=== PATIENT | male | born 1950 | race Two or more races ===

== ENCOUNTER 2020-04-02 11:26 | Inpatient (IN) | payer MEDICARE, OTHER ==
[~2020-04-02] VITALS: Ht 165.1 cm; Wt 73.5 kg
--- OUTSIDE RECORDS SUMMARY | ~2020-04-02 | XMS | Encounter Summary ---
Demographics + + + | Address | [address] | | | [place] [address] | + + + | Home Phone | | + + + | Preferred Language | Unknown | + + + | Marital Status | Unknown | + + + | Yazdanism Affiliation | 1041 | + + + | Race | Unknown | + + + | Ethnic Group | Unknown | + + + Author + + + | Author | [facility] | | | and [place] | + + + | Organization | [facility] | | | and [place] | + + + | Address | Unknown | + + + | Phone | Unavailable | + + + Support + + +---------+ + | Name | Relationship | Address | Phone | + + +---------+ + | Pop Cornelius | ECON | Unknown | | + + +---------+ + | Constanza Cornelius | ECON | Unknown | | + + +---------+ + Care Team Providers + +------+ + | Care Oracle Brm Developer Name | Role | Phone | + +------+ + PCP | Unavailable | + +------+ + Encounter Details +--------+ + + + + | Date | Type | Department | Care Team | Description | +--------+ + + + + | 11/21/ | [facility] | [facility] | | | | 2010 | Encounter | MED CTR GENERIC OP | | | | | | CONV DEPT [address] | | | | | | [place], | | | | | | [place] [address] | | | | | | [phone] | | | +--------+ + + + + Social History + +-------+ +--------+------+ | Tobacco Use | Types | Packs/Day | Years | Date | | | | | Used | | + +-------+ +--------+------+ | Never Assessed | | | | | + +-------+ +--------+------+ + + + | Sex Assigned at | Date Recorded | | | | + + + | Not on file | | + + + + + + + | Job Start Date | Occupation | Industry | + + + + | Not on file | Not on file | Not on file | + + + + + + + + | Travel History | Travel Start | Travel End | + + + + + + | No recent travel history available. | + + documented as of this encounter Plan of Treatment Not on filedocumented as of this encounter Visit Diagnoses Not on filedocumented in this encounter"
--- OUTSIDE RECORDS SUMMARY | ~2020-04-02 | XMS | Encounter Summary ---
Demographics + + + | Address | [address] | | | [place] [address] | + + + | Home Phone | | + + + | Preferred Language | Unknown | + + + | Marital Status | Unknown | + + + | Adventist Affiliation | 1041 | + + + | Race | Unknown | + + + | Ethnic Group | Unknown | + + + Author + + + | Author | [facility] | | | and [place] | + + + | Organization | [facility] | | | and [...] Team Providers + +------+ + | Care Temporary Data Entry Clerk Name | Role | Phone | + +------+ + PCP | Unavailable | + +------+ + Encounter Details +--------+ + + + + | Date | Type | Department | Care Team | Description | +--------+ + + + + | 07/21/ | Abstract | [facility] | [facility] | | | 2011 | | Conversion Location | [address] | | | | | [address] | | | | | | [place], [place] | | | | | | [address] | | | | | | [phone] | | | +--------+ + + + [...] + + documented as of this encounter Last Filed Vital Signs + + + [...] | | + + + + + documented in this encounter Plan of Treatment Not on filedocumented as of this encounter Procedures + +--------+ + + + | Procedure Name | Priori | Date/Time | Associated Diagnosis | Comments | | | ty | | | | + +--------+ + + + | ENDOSCOPY, COLON, | Routin | 11/21/2010 | | Results for this | | DIAGNOSTIC | e | 12:00 AM | | procedure are in the | | | | PST | | results section. | + +--------+ + + + documented in this encounter Results ENDOSCOPY, COLON, DIAGNOSTIC (11/21/2010 12:00 AM PST) + + | Specimen | + + | | + + + + + | Narrative | Performed At | + + + | | | + + + documented in this encounter Visit Diagnoses Not on filedocumented in this encounter
--- OUTSIDE RECORDS SUMMARY | ~2020-04-02 | XMS | Encounter Summary ---
Demographics + + + | Address | [address] | | | [place] [address] | + + + | Home Phone | | + + + | Preferred Language | Unknown | + + + | Marital Status | Unknown | + + + | Hinduism Affiliation | 1041 | + + + | Race | Unknown | + + + | Ethnic Group | Unknown | + + + Author + + + | Author | [facility] | | | and [place] | + + + | Organization | [facility] | | [...] Team Providers + +------+ + | Care Radio Board Operator Announcer Name | Role | Phone | + +------+ + PCP | Unavailable | + +------+ + Encounter Details +--------+ + + + + | Date | Type | Department | Care Team | Description | +--------+ + + + + | 11/21/ | [facility] | [facility] | | | | 2010 | Encounter | MED CTR GENERIC OP | | | | | | CONV DEPT [address] | | | | | | [place], | | | | | | [place] [address] | | | | | | [phone] | | | +--------+ + + + [...]
--- OUTSIDE RECORDS SUMMARY | ~2020-04-02 | XMS | Encounter Summary ---
Demographics + + + | Address | [address] | | | [place] [address] | + + + | Home Phone | | + + + | Preferred Language | Unknown | + + + | Marital Status | Unknown | + + + | Christianity Affiliation | 1041 | + + + | Race | Unknown | + + + | Ethnic Group | Unknown | + + + Author + + + | Author | [facility] | | | and [place] | + + + | Organization | [facility] | | | [...] Team Providers + +------+ + | Care Chain Saw Mechanic Name | Role | Phone | + +------+ + PCP | Unavailable | + +------+ + Encounter Details +--------+ + + + + | Date | Type | Department | Care Team | Description | +--------+ + + + + | 04/03/ | Hospital | [place] [facility] | | | 2009 | Encounter | [facility] EM[facility]GENCY | [address] | | | | | [address] | [address] | | | | | [address] [place], [place] | [place] [address] | | | | | [address] | [phone] | | | | | [phone] | | | +--------+ + + + [...]
--- OUTSIDE RECORDS SUMMARY | ~2020-04-02 | XMS | Clinical Summary ---
Demographics + + + | Address | [address] | | | [place] [address] | + + + | Home Phone | | + + + | Preferred Language | Unknown | + + + | Marital Status | Unknown | + + + | Oriental Orthodox Affiliation | 1041 | + + + | Race | Unknown | + + + | Ethnic Group | Unknown | + + + Author + + + | Author | [facility] | | | and [place] | + + + | Organization | [facility] | | | and [...] Team Providers + +------+ + | Care Personal Banking Assistant Name | Role | Phone | + [...] recent travel history available. | + + Last Filed Vital Signs + [...] + + Plan of Treatment + + + + + | Health Maintenance | Due Date | Last Done | Comments | + + + + + | Vaccine: | | | | | Dtap/Tdap/Td (1 - | 0 | | | | Tdap) | | | | + + + + + | Vaccine: Zoster (1 | | | | | of 2) | 9 | | | + + + + + | Vaccine: | | | | | Pneumococcal 65+ (1 | 4 | | | | of 2 - PCV13) | | | | + + + + + | Vaccine: Influenza | | | | | (Season Ended) | 0 | | | + + + + + Results Not on filefrom Last 3 Months
--- OUTSIDE RECORDS SUMMARY | ~2020-04-02 | XMS | Clinical Summary ---
Demographics + + + | Address | [address] | | | [place] [address] | + + + | Home Phone | | + + + | Preferred Language | Unknown | + + + | Marital Status | Unknown | + + + | Spiritism Affiliation | 1041 | + + + | Race | Unknown | + + + | Ethnic Group | Unknown | + + + Author + + + | Author | [facility] | | | and [place] | + + + | Organization | [facility] | | | [...] Team Providers + +------+ + | Care Geographic Area Intelligence Officer Name | Role | Phone | + [...]
--- OUTSIDE RECORDS SUMMARY | ~2020-04-02 | XMS | Encounter Summary ---
Demographics + + + | Address | [address] | | | [place] [address] | + + + | Home Phone | | + + + | Preferred Language | Unknown | + + + | Marital Status | Unknown | + + + | Confucianist Affiliation | 1041 | + + + | Race | Unknown | + + + | Ethnic Group | Unknown | + + + Author + + + | Author | [facility] | | | and [place] | + + + | Organization | [facility] | | | and [...] Team Providers + +------+ + | Care Carbonation Equipment Operator Name | Role | Phone | + [...] | [address] [place], [place] | [place] [address] | | | | | [address] | [phone] | | | | | [phone] | | | +--------+ + + + [...]
--- OUTSIDE RECORDS SUMMARY | ~2020-04-02 | XMS | Encounter Summary ---
Demographics + + + | Address | [address] | | | [place] [address] | + + + | Home Phone | | + + + | Preferred Language | Unknown | + + + | Marital Status | Unknown | + + + | Zoroastrian Affiliation | 1041 | + + + | Race | Unknown | + + + | Ethnic Group | Unknown | + + + Author + + + | Author | [facility] | | | and [place] | + + + | Organization | [facility] | | [...] Team Providers + +------+ + | Care Account Liaison Name | Role | Phone | + [...] | | | | | [address] | | | | | | [place], [place] | | | | | | [address] | | | | | | [phone] | | | +--------+ + + + [...]
[~2020-04-02 11:26] MED LIST: ALEVE220 MG PO; ALLOPURINOL100 MG PO; ATACAND32 MG PO; EPIPEN1 EA INJ; HYDROMORPHONE HC2 MG PO; IRON325 M1 PO; MECLIZINE HCL25 MG PO; MULTIVITAMINS1 EAC7 PO; NORCO 7.5-3251 EACH PO; OXYCODONE HCL20 MG PO; OXYCODONE HCL5 MG PO; OXYCONTIN30 MG PO; RIFADIN300 MG PO; ROCEPHIN1 GM IV; TYLENOL325 MG PO; VITAMIN C500 M1 PO; XARELTO10 MG PO; ZETIA10 MG PO; ZYLOPRIM300 MG PO
[2020-04-04] MEDS ORDERED: IRBESARTAN75 MG PO (11:29)
--- NOTE | 2020-04-15 11:46 | NUR ---
04/15/20 1146 Jenna Parish 1102 PT ARRIVED IN PACU AWAKE AND MOVING AROUND IN BED. BP LOW. ANESTHESIA AWARE. 1111 ANESTHESIA GAVE VASOPRESSIN FOR LOW BP. 1115 BP 130/62. XRAY AT BEDSIDE. 1120 CRYO CUFF PLACED ON R KNEE. 1125 PT INCONTINENT OF LG AMOUNT OF URINE. CLEANED PT UP AND CHANGED GOWN/LINEN. 1145 PT SNORING. REU.
--- NOTE | 2020-04-15 12:00 | NUR ---
PT ARRIVED TO THE FLOOR FROM PACU. PT AWAKE BUT BECAME INCONTINET OF URINE UPON ARRIVAL OF URINE. PT WAS NOT AWARE THAT HE WAS URINATING, PT RECEIVED A SPINAL IN SURGERY. PT HAS NO COMPLAINTS OF PAIN. PT GIVEN THE CALL LIGHT AND EDUCATED HOW TO USE IT. PT GIVEN HIS PERSONAL ITEMS INCLUDIN: GLASSES AND PERSONEL CELL PHONE.
--- NOTE | 2020-04-15 12:35 | NUR ---
this rn in pts room. bladder scanner showed 332ml of urine in pts bladder. in pts room to assess pt. pt alert and oriented but falls asleep easily. notified at this time of pts bp. pt states that he did take his home bp meds prior to surgery today. pt also O2 sat at 88-91% on room air. this rn placed pt on 1L NC and pt O2 sat at 96-98% at this time
--- NOTE | 2020-04-15 13:12 | NUR ---
this rn in room to get 2nd post opp viatals
--- NOTE | 2020-04-15 15:20 | NUR ---
PT ALERT/ORIETNED ORDERED LATE LUNCH AT THIS TIME. PT HAS NOT COMPLAINTS OR REQUESTS AT THIS TIME. HAS BEEN SLEEPING INTERMITTEN, 95% OXYGEN SATURATION ON ROOM AIR AT THIS TIME
--- NOTE | 2020-04-15 16:17 | NUR ---
PATIENT WORKING WITH PHYSICAL THERAPY. CM WILL SEE TOMORROW.
--- NOTE | 2020-04-15 16:54 | NUR ---
IS AWARE OF PTS BP TODAY.
--- NOTE | 2020-04-15 17:14 | NUR ---
BLADDER SCANNED PT. PT HAS 273ML IN BLADDER. PT HAS SOME INCONTINENCE IN BRIEF PT STATES THAT HE STILL CANNOT FEEL THE URGE TO PEE. PT IS DUE TO VOID
--- NOTE | 2020-04-15 18:01 | NUR ---
PATIENT IN BED WATCHING TV. B\P JOAN, RN NOTIFIED AND IS COMING TO DO MANUAL B\P. CRYO FILLED. CALL LIGHT IN REACH. NO FURTHER NEEDS AT THIS TIME.
--- NOTE | 2020-04-15 19:05 | NUR ---
NOTIFIED ABOUT PTS SOFT BP'S TODAY. GAVE A VERBAL ORDER FOR LABS IN THE AM
--- NOTE | 2020-04-15 19:20 | NUR ---
BEDSIDE REPORT RECEIVED FROM OFFGOING RNMARTIR. PT RESTING IN BED WITH EYES CLOSED. DOES NOT WAKE WHILE TRAVEL COTA AND OFFGOING RN IN ROOM. CALL LIGHT IN REACH.
--- NOTE | 2020-04-15 20:25 | NUR ---
PT RESTING IN BED WITH EYES CLOSED.R ESPIRATIONS EVEN AND UNLABORED. PT WAKES EASILY. DENIES PAIN, NAUSEA, OR SOB. PT ASSESSMENT COMPLETE. PT REPORTS PAIN UPON ABDOMINAL PALPATION. SLIGHT DISTENSION NOTED. PT HAS URINAL IN PLACE WITH 50 ML PRESENT WELL X 1 INCONTINENCE TO ATTEND. PT BLADDER SCANNED, 800 ML PRESENT ON BLADDER SCAN. CARRION CATH INSERTED PER ORDER, 16 F. PT TOLERATED WELL. IMMEDIATE RETURN OF 850 ML OF ORANGE URINE. PT STATES IMMEDIATE RELIEF OF ABD PAIN AND PRESSURE. PT REPORTS NUMBNESS AND TINGLING TO R FOOT AND ANKLE. CAN FEEL KNEE. ABLE TO WIGGLE R TOES, ALTHOUGH CANNOT FEEL HIMSELF DOING SO. LLE WNL. YARI DRESSING D/I, WITH [id number] SHADOWING PRESENT. GREEN OK FLASHING, ON Q PUMP@ 2ML. TEDS, FOOT PUMPS, AND CRYO IN PLACE. PT VISITING WITH AIR DEFENSE CONTROL OFFICER WHOM HE KNOWS PERSONALLY. SCHEDULED MEDS ADMINISTERED. PT DENIES FURTHER NEEDS. CALL LIGHT IN REACH.
--- NOTE | 2020-04-15 20:58 | NUR ---
MD NOTIFIED REGARDING RECURRING LOW BLOOD PRESSURES, SPECIFICALLY 76/45 WITH MAP OF 57. WELL NEW CARRION PLACEMENT. PER MD, "JUST LIKE THE LAST TWO TIMES YOU GUYS HAVE CALLED, I DON'T WANT TO DO ANYTHING DIFFERENT". NO NEW ORDERS RECEIVED.
--- NOTE | 2020-04-15 23:20 | NUR ---
DIRECTOR OF NURSES REGISTRY TO ROOM FOR SCHEDULED MED ADMINISTRATION, PT RESTING IN BED WITH EYES CLOSED. WAKES EASILY TO VOICE AND TOUCH. PT REPORTS THAT PAIN IS WELL CONTROLLED. BP RETAKEN. PT DENIES FURTHER NEEDS AT THIS TIME. CALL LIGHT IN REACH.
--- NOTE | 2020-04-16 02:36 | NUR ---
PT ASSESSMENT COMPLETE. PT RESTING IN BED AWAKE WITH LIGHTS ON. PT DENIES PAIN, NAUSEA, OR SOB. PT DENIES FURTHER ABD TENDERNESS, NO DISTENSION NOTED. YARI DRESSING UNCHANGED FROM PREVIOUS, D/I. GREEN, "OK" FLASHING. ON Q @ 2 ML. PT CONTINUES TO REPORT NUMBNESS TO R LEG. CMS INTACT TO LLE. CRYO, TEDS, SCDS IN PLACE. CARRION DRAINING ORANGE URINE. BP CONTINUES TO BE LOW. ICE WATER REFILLED. PT DENIES FURTHER NEEDS. CALL LIGHT IN REACH.
--- NOTE | 2020-04-16 02:57 | NUR ---
HOSPITALIST NOTIFIED OF CONTINUED LOW BP. NO NEW ORDERS RECEIVED.
--- NOTE | 2020-04-16 05:23 | NUR ---
PT SLEPT WELL THIS SHIFT. PAIN IS WELL CONTROLLED WITH SCHEDULED MEDS. SPINAL NOT YET RESOLVED. YARI DRESSING WITH 1 CMX1CM RED SHADOWING PRESENT. DRY/INTACT, ASHELY WRAP, YARI BOX HAS GREEN OK LIGHT FLASHING. ON Q PUMP AT 2 ML. TEDS, FOOT PUMPS, CRYO, HEEL PROTECTORS. CARRION PLACED FOR BLADDER SCAN ~ 800 ML THIS SHIFT, REMOVED @ ~ 0600. UO QS, URINE ORANGE IN COLOR. IV SL. 2 PA WITH FWW. BP HAS BEEN LOW, PRIMARY AND CONSULTING MDS NOTIFIED.
--- NOTE | 2020-04-16 06:47 | NUR ---
WRTIER TO ROOM FOR MED ADMINISTRATION. PT AWAKE WATCHING TV. STATES THAT PAIN IS WELL CONTROLLED. PT REPORTS HE FEELS READY TO GET UP AND MOVING. CARRION CATH REMOVED. PT TOLERATED WELL. DENIES FURTHER NEEDS AT THIS TIME. CALL LIGHT WITHIN REACH.
--- NOTE | 2020-04-16 07:15 | NUR ---
PT SITTING UP IN BED ALERT AND ORIENTED, CARRION CATHETER OUT THIS AM, HE REPORTS HE USUALLY HAS A CUP OF COFFEE IN THE AM, WILL PROVIDE. NO OTHER CONCERNS AT THIS TIME, BEDSIDE REPORT.
--- NOTE | 2020-04-16 08:14 | OR ---
[facility] [address], [place] [address] Signed DATE OF OPERATION: SURGEON: Argenis Mejia MD PREOPERATIVE DIAGNOSIS: Arthrofibrosis, right total knee. POSTOPERATIVE DIAGNOSIS: Arthrofibrosis, right total knee. PROCEDURE PERFORMED: Revision of both components, right total knee. SHEAR OPERATOR AUTOMATIC: DIVINE Dumont ANESTHESIA: Spinal. TOURNIQUET TIME: 122 minutes, 15 minutes rest and 20 minutes after that. BLOOD LOSS: 300 mL. IMPLANTS: Luis TS knee size #4 with correction 150 mm stems both sides, two posterior augments on the femur of 5 mm and 16 mm poly. BRIEF HISTORY: Ela is a 69-year-old gentleman, who initially had a knee replacement about seven years ago. He had an early postoperative infection and was ultimately washed out poly exchange and IV antibiotics. He healed uneventfully, however, he did not pursue his physical therapy in order to return to work. He pretty much disappeared until the last year, so when he returned he had a significant flexion contracture about 25 degrees with total flexion of only about 50 degrees. Risks and benefits of operative revision were discussed with him. He elected to proceed. DESCRIPTION OF PROCEDURE: Once consent was obtained, he was taken to the operating room. After adequate anesthesia, he was placed on operating table. All downside pressure points well padded. Electronically Signed By: ARGENIS MEJIA MD 04/16/20 0814 PATIENT NAME: ELA VELARDE OPERATIVE REPORT DATE OF : 48 REPORT #: [id number] PHYSICIAN: ARGENIS MEJIA MD PCP: MAZIN TELLO MD REPORT IS CONFIDENTIAL AND NOT TO BE RELEASED WITHOUT AUTHORIZATION [facility] [address], [place] [address] Signed A well-padded proximal thigh tourniquet was placed. The leg was then prepped and draped in a standard sterile fashion. Exsanguinated using Esmarch bandage and tourniquet inflated to 250 mmHg. Prior incision was marked out and extended an inch each direction and carried through the skin and subcutaneous tissue. He had marked fibrosis between the skin and the subcutaneous tissue, and skin flaps were developed medially and laterally. The median parapatellar arthrotomy was performed. The proximal extension was taken to the proximal end of the tendon and the quadriceps snip was performed. There was extensive intra-articular fibrosis of the capsule to the underlying soft tissue, this was removed in the form of partial capsulectomy and extensive releases laterally. The patella was pretty much scarred in and the scar tissue was removed. The patellar tendon was protected throughout. The MCL was then elevated as a sleeve around posteromedially as far as I can get it. The polyethylene was then removed and the posterior aspect of the knee was released. There was some soft in the middle of the knee under the post, and we did send that off for Gram stain and culture and Gram stain showed minimal red blood cells, no white blood cells or organisms. Extensive posterior release performed off both the femur and tibia. This was done slowly with meticulous dissection of the layers. The capsule was released off the posterior femur and also the posterior proximal tibia. The popliteus was released. The soft tissue around the prostheses was removed to allow visualization of the edge of the prostheses. Then, using a combination of flexible hard osteotomes and microsagittal saw, we were able to loosen the femur by cutting through the cement mantle both medially and laterally. It came out quite well with no significant bone loss. Attention was then turned to the proximal tibia and the same thing was done there. The tibial component was patiently loosened by sawing and cutting with the osteotome until it was easy to remove. No significant bone loss was noted. The tibia was then cut first. The tibial shaft was then reamed up to 13 for 12 post. The reamer was left in position and the intramedullary cutting guide was positioned and 3 mm were taken off the tibia. The remaining cement mantle was removed. The attention was then turned to the distal femur. The distal femoral canal was then entered and reamed up to a 16 for 15 stem. The 16 reamer was left in position. The distal femoral cutting block was then positioned and a 1-2 mm cut was then taken off the distal femur and the four-in-one cutting block was then pinned on the distal femur and aligned with epicondylar axis. The anterior, posterior, and chamfer cuts were made. No posterior cuts were performed because of bone loss. We then cut him in the 5 mm posterior augment position. Once this was completed, the box cutting guide was placed in the box cut was made. The cutting blocks were then removed and all bone fragments removed. We then placed the femoral and tibial trials with initially a 13, then a 16 mm poly, and with the 16 he had range of motion zero to about 125 degrees of flexion. He was stable throughout and could not jump the post. By this time, the tourniquet reached to 120 minutes and the tourniquet was released, all bleeders were cauterized and the knee was packed for 15 minutes. We then re-exsanguinated and removed the packing. We removed the trials finish the tibia with a keel punch and the pulse lavaged all bone. We then used the Aquamantys on the posterior Electronically Signed By: ARGENIS MEJIA MD 04/16/20 0814 PATIENT NAME: ELA VELARDE OPERATIVE REPORT DATE OF : 48 REPORT #: [id number] PHYSICIAN: ARGENIS MEJIA MD PCP: MAZIN TELLO MD REPORT IS CONFIDENTIAL AND NOT TO BE RELEASED WITHOUT AUTHORIZATION [facility] [address], [place] [address] Signed and medial aspects of the capsule to delay any bleeders. Cement was placed on the femoral and tibial components as well as the tibial bone and the tibia was impacted in position, all excess cement was removed. The femur was then impacted into position and the polyethylene was snapped into position. Again, 60 mm used. Excellent range of motion with good stability in flexion, mid flexion and extension. The patella tracked well, although we did do a little bit of lateral release. The cement was allowed to harden. The knee was flexed and the remaining cement was removed using osteotomes. We then placed the final polyethylene with its post and reduced the knee. The knee again was quite stable. The wound was copiously irrigated with 4 L of antibiotic solution and On-Q pain pump was placed in the adductor canal from the suprapatellar pouch from a percutaneous position. The arthrotomy was then closed using a combination of #1 Vicryl and #2 StrataFix subcutaneous tissue was closed with #1 Stratafix, and the skin with doron. The wound was dressed with YARI wound VAC dressing, ABDs and Kalen wrap. He was awakened and taken to the recovery room in satisfactory condition. All sponge, needle, and instrument counts were correct. Argenis Mejia MD BA/MODL /[id number] Copies: ~ Electronically Signed By: ARGENIS MEJIA MD 04/16/20 0814 PATIENT NAME: ELA VELARDE OPERATIVE REPORT DATE OF : 48 REPORT #: [id number] PHYSICIAN: ARGENIS MEJIA MD PCP: MAZIN TELLO MD REPORT IS CONFIDENTIAL AND NOT TO BE RELEASED WITHOUT AUTHORIZATION
--- NOTE | 2020-04-16 08:15 | NUR ---
PATIENT SITTING UP IN CHAIR. WHITE BOARD UPDATED. CALL LIGHT WITHIN REACH. NO OTHER NEEDS AT THIS TIME
--- NOTE | 2020-04-16 09:21 | NUR ---
PATIENT SITTING UP IN CHAIR. VITAL SIGNS AND I&O DONE. CALL LIGHT WITHIN REACH. NO OTHER NEEDS AT THIS TIME
--- NOTE | 2020-04-16 09:30 | NUR ---
PT UP TO RECLINER TO EAT BREAKFAST, AMBULATED WELL TO RECLINER WITH SBA AND FWW, INTO ASSESS PT AND DISCUSS PLAN OF CARE. POSSIBLE SWINGBED FOR THERAPY. AM MED PASS COMPLETE. PT REPORTS NO PAIN AND IS LOOKING FORWARD TO PHYSICAL THERAPY.
--- NOTE | 2020-04-16 10:46 | NUR ---
PT RESTING IN THE RECLINER. HE HAS NOT YET VOIDED, TALKED WITH ANDREINA Mcnair ABOUT WHEN SHE IS AVAILABLE TO WORK WITH PATIENT. SHE SAID SHE IS AVAILABLE IN 5 MINUTES. PT NOTIFIED WE WILL TRY TO GET UP AND VOID IN THE BATHROOM.
--- NOTE | 2020-04-16 11:00 | NUR ---
Spoke with Ravindra. He states he continues to not have feeling in his feet. Discussed Transitional Care with patient as Dr. Mejia states he would like TC for this pt. for PT rehab. I will need to clarify with Dr. Mejia if he will follow or if he would like the hospitalist to follow on TC. Ravindra states understanding of TC and is in agreement for further rehab. He is wondering if his could rehab here, as she had a foot amputation last Wednesday. He would like to share a room, informed I don't think they could share a room as our rooms a singles. I let him know, [facility] needs to send us a chart, if she would like to rehab here.
--- NOTE | 2020-04-16 13:30 | NUR ---
PER PHYSICAL THERAPY INSTRUCTION, CPM MACHINE REMOVED AFTER 2 HOURS OF USE. PT REPORTS NO PAIN. PT VOIDING SUFFICIENT QUANTITY URINE IN BEDSIDE URINAL.
--- NOTE | 2020-04-16 14:00 | NUR ---
PT RESTING IN BED, REQUESTED TO BE LEFT TO TAKE A NAP AND NOT BE DISTURBED FOR AWHILE.
--- NOTE | 2020-04-16 14:05 | NUR ---
PATIENT RESTING IN BED. VITAL SIGNS AND I&O DONE. CALL LIGHT WITHIN REACH. CRYO MACHINE FILLED. CALL LIGHT WITHIN REACH. NO OTHER NEEDS AT THIS TIME
--- NOTE | 2020-04-16 15:30 | NUR ---
PT UP WITH PHYSICAL THARAPY, AMBULATED IN HALLS WITH ANDREINA, TOLERATED WELL, REPORTS NO PAIN. YARI DRESSING TO RIGHT KNEE INTACT, SCANT DRAINAGE NO NEW DRAINAGE THIS SHIFT. TOLERATED REGULAR DIET NO NAUSEA. PT HAS NOT REQUIRED ANY PRN PAIN COVERAGE. S/L, ON ROOM AIR, CRYO CUFF ICED, IN PLACE, SCDS ON WHILE IN BED, TEDS ON PT BLE.
--- NOTE | 2020-04-16 17:22 | NUR ---
Spoke with Dr. Mejia. Plans to admit to TC following 3 night stay and he will follow pt.
--- NOTE | 2020-04-16 17:55 | NUR ---
PATIENT IN CHAIR WATCHING TV. CRYO CHECKED. CALL LIGHT IN REACH. NO FURTHER NEEDS AT THIS TIME.
--- NOTE | 2020-04-16 20:08 | NUR ---
IS AWARE OF SOFT B/P. PATIENT IN BED NOW AFTER GETTING UP FROM THE CHAIR, CPM IN PLACE AND RUNNING.
--- NOTE | 2020-04-16 21:56 | NUR ---
CPM OFF. 1 PA SBA TO THE BATHROOM AND BACK TO BED. CRYO SCD ON. BED ALARM ON FOR SAFETY. CALL LIGHT WITHIN REACH.
--- NOTE | 2020-04-17 00:04 | NUR ---
PATIENT RESTING QUIELY SUPINE IN BED, EYES CLOSED, RESPIRATIONS REGULAR AND EVEN, CALL LIGHT IN REACH AND BED ALARM ON.
--- NOTE | 2020-04-17 02:21 | NUR ---
PATIENT GOT UP TO THE BATHROOM WITH 1PA AND THEN BACK TO BED AND GOT HIS 2AM TORADOL. CALL LIGHT IN REACH.
--- NOTE | 2020-04-17 03:39 | NUR ---
MD AWARE OF LOW BLOOD PRESSURES.
--- NOTE | 2020-04-17 04:25 | NUR ---
PATIENT HAS SLEPT ON AND OFF, WAKING UP TO USE THE RESTROOM, PATIENT'S PAIN HAS REMAINED UNDER CONTROL WITH TORADOL. CPM MACHINE USED BEFORE BEDTIME. CRYO, JALEN AND FOOT PUMPS AND HEAL GAURDS REMAIN IN PLACE. PATIENT WILL TRY TO GET UP ON HIS OWN AND HAS HAD TO BE FREQUENTLY REDIRECTED TO CALL WHEN HE NEEDS TO GET UP INSTEAD OF DISCONNECTING ALL HIS EQUIPMENT HIMSELF. BED ALARM HAS HAD TO BE PLACED ON HIM MOST OF THE NIGHT. RESTING QUIETLY WITH EYES CLOSED AND EQUAL AND REGULAR RESPIRATIONS AT THIS TIME. CALL LIHT IN REACH.
--- NOTE | 2020-04-17 05:59 | NUR ---
PATIENT IS UP TO THE BATHROOM. PATIENT IS BACK IN BED. CRYO AND SCD ARE BACK ON.
--- NOTE | 2020-04-17 06:29 | NUR ---
PATIENT JUST SITTING IN BED, NOT HAVING PAIN, WATCHING TV. CALL LIGHT IN REACH.
--- NOTE | 2020-04-17 07:17 | NUR ---
RECEIVED REPORT FROM BIANCA GORE. PT SITTING UP IN BED, CALL LIGHT WITHIN REACH, PT STATES THAT HIS PAIN IS A 0. DISCUSSED WITH PT THE IMPORTANCE OF USING HIS CALL LIGHT WHEN HE GETS UP
--- NOTE | 2020-04-17 09:30 | NUR ---
IN PTS ROOM TO GIVE MORNING MEDS AND START PTS CPM. ANDREINA FROM PHYSICAL THERAPY THEN CAME IN TO WORK WITH PT. TOOK OFF CPM AT THIS TIME
--- NOTE | 2020-04-17 11:00 | NUR ---
Spoke with Bernard. He is resting in bed. Updated, he can go to Transitional Care tomorrow per Dr. Mejia. Pt is delighted. calls and she remains in [facility] following amputation. Will know next Wednesday when she will dc. Pt's daughter will come and stay with pt and his to assist them.
--- NOTE | 2020-04-17 11:05 | NUR ---
IN PTS ROOM TO RE-START CPM. PT COMPLIANT WITH CARE AND UP TO RESTROOM BEFORE STARTING SPM. PT STATES THAT HE HAS NO PAIN AT THIS TIME
--- NOTE | 2020-04-17 11:30 | NUR ---
UNFORTUNATELY PATIENT WASN'T ASSIGNED TO EITHER ABORIGINAL COMMUNITY COUNCIL MEMBER THIS MORNING. SO AM VITALS WERE MISSED AT 10AM. VITALS AND I&OS ARE NOW COMPLETE AND CHARTED. CRYO CUFF REPLENISHED. CALL LIGHT IN REACH. NO OTHER NEEDS.
--- NOTE | 2020-04-17 14:00 | NUR ---
PT WORKING WITH PHYSICAL THERAPY FROM [id number]
--- NOTE | 2020-04-17 14:15 | NUR ---
PATIENT FINISHED WITH LUNCH. 1 PA ASSIST TO BATHROOM AND BACK. LINENS CHANGED. VITALS AND I&OS CHARTED. PT ANDREINA IN TO WORK WOTH PATIENT.
[2020-04-17] MEDS ORDERED: TAMSULOSIN HCL0.4 MG PO (15:11)
[2020-04-17] MEDS ORDERED: HYDROCODON-ACE1 EA10 PO (15:12)
--- NOTE | 2020-04-17 15:33 | NUR ---
PT STATES THAT HE HAS NO PAIN AT THIS TIME
--- NOTE | 2020-04-17 16:54 | NUR ---
MED REC COMPLETE
--- NOTE | 2020-04-17 17:30 | NUR ---
PATIENT IS SITTING UP IN BED WATCHING TV. VITALS AND I&OS DONE AND CHARTED. PATIENT REQUESTED HIS DINNER BROUGHT IN @18:30. CALL LIGHT IN REACH NO OTHER NEEDS AT THIS TIME
--- NOTE | 2020-04-17 18:42 | NUR ---
PT HAD A GOOD DAY TODAY. PT IN GOOD SPIRITS AND WORKED WITH PHYSICAL THERAPY TWICE TODAY. PT STATES THAT HE HAS A PAIN OF 0/10, PT STILL TAKING SCEDULED TYLENOL AND TORADOL. PT USED CPM MACHINE WELL TODAY. PT HAD GOOD VITALS BUT BP'S ARE STILL RUNNING A BIT SOFT
--- NOTE | 2020-04-17 18:47 | NUR ---
1PA PATIENT TO BATHROOM AND BACK USING FWW. DIETARY BROUGHT DINNER, PATIENT NOW VISITING WITH DR CROWDER AT BEDSIDE. PATIENT REFUSED CHANGING DIRTY GOWN FROM [facility]UN[facility]. WOULD LIKE TO SIT WITHOUT CRYO CUFF WHILE HE EATS DINNER. CALL LIGHT WITHIN REACH. NO OTHER NEEDS AT THIS TIME.
--- NOTE | 2020-04-17 19:05 | NUR ---
THIS RN IN ROOM TO REMOVE SUTURES PER . REMOVED 2 SUTURES ON THE TOP OF PTS MOUTH
--- NOTE | 2020-04-17 19:53 | NUR ---
PATIENT HAVING NO PAIN, FINISHING HIS DINNER AND WATCHING TV. NO OTHER NEEDS AT THIS TIME. CALL LIGHT IN REACH.
--- NOTE | 2020-04-17 20:31 | NUR ---
PATIENT CALLED. PATIENT BACK FROM THE BATHROOM AND IN BED HOOKED UP TO [facility].
--- NOTE | 2020-04-17 22:00 | NUR ---
PATIENT JUST WATCHING TV AND FINISHING UP WITH CPM AND STILL HAVING NO PAIN. CALL LIGHT IN REACH.
--- NOTE | 2020-04-18 | NUR ---
PATIENT RESTING QUIETLY ON HIS RIGHT SIDE, EYES CLOSED, RESPIRATIONS REGULAR AND EVEN CALL LIGHT IN REACH.
--- NOTE | 2020-04-18 01:44 | NUR ---
PATIENT RESTING QUIETLYY AND HAS BEEN SLEEPING UNTIL I JUST GAVE THE 2AM MED. PATIENT HAVING NO PAIN AND GOING BACK TO SLEEP. CALL LIGHT IN REACH.
--- NOTE | 2020-04-18 04:20 | NUR ---
PATIENT HAS RESTED WELL MOST OF THE NIGHT AND HAS HAD NO PAIN TEDS, FOOT PUMPS IN PLACE. PATIENT USED CPM BEFORE BED, PATIENT URINATING AND TAKING IN FLUIDS FINE. CALL LIGHT IN REACH.
--- NOTE | 2020-04-18 06:43 | NUR ---
PATIENT ON HIS CPM MACHINE, STILL HAVING NO KNEE PAIN AND AND HAS NO NEEDS AT THIS TIME. CRYO CUFF BUCKET REFILLED WITH ICE AND HIS WATER GLASS IS FULL. CALL LIGHT IN REACH.
--- NOTE | 2020-04-18 07:42 | NUR ---
in room to complete morning assessment. Pt denied pain at this time. pts dressing c/d/i. jay hoes, cryo cuff, and scd's in place.
--- NOTE | 2020-04-19 08:15 | DS ---
[facility] [address] [place], [place] [address] Signed ADMISSION DATE: 04/15/2020 DISCHARGE DATE: 04/18/2020 ADMISSION DIAGNOSIS: Arthrofibrosis, severe right total knee. DISCHARGE DIAGNOSIS: Arthrofibrosis, severe right total knee. PROCEDURE PERFORMED: Revision of right total knee, 2 components. BRIEF HISTORY: is a 69-year-old gentleman, who is about 7 years out from his total knee. He developed severe arthrofibrosis. with about a 20-degree arc of motion. Risks and benefits of operative revision were discussed with him and he elected to proceed. Once consent was obtained, he was taken into the operating room after adequate anesthesia and underwent the above-named procedure. He tolerated this well and was taken to the recovery room and subsequently to orthopedic floor. He was placed on CPM 0 to 90 degrees with good results. His pain control was excellent throughout. His labs stayed normal. He was placed on DVT prophylaxis of SCDs, TEDs and aspirin 325 b.i.d. He will be going home with his , who just recently had a below-knee amputation. He was still in the hospital in [facility]. We will keep him on swing bed for continued inpatient rehab to get stronger, get his balance better and get his gait better. Anticipate discharge probably next week. Argenis Mejia MD BA/HOLLEY /[id number] Copies: Electronically Signed By: ARGENIS MEJIA MD 04/19/20 0815 PATIENT NAME: ELA VELARDE DISCHARGE SUMMARY DATE OF : 48 REPORT #: [id number] PHYSICIAN: ARGENIS MEJIA MD PCP: MAZIN TELLO MD REPORT IS CONFIDENTIAL AND NOT TO BE RELEASED WITHOUT AUTHORIZATION [address] [place], [place] [address] Signed ~ Electronically Signed By: ARGENIS MEJIA MD 04/19/20 0815 PATIENT NAME: ELA VELARDE DISCHARGE SUMMARY DATE OF : 48 REPORT #: [id number] PHYSICIAN: ARGENIS MEJIA MD PCP: MAZIN TELLO MD REPORT IS CONFIDENTIAL AND NOT TO BE RELEASED WITHOUT AUTHORIZATION
== END 2020-04-18 09:35 | disposition swing bed (61) | DRG 468 ==
LOC: MS 04-15 05:30 → DS 04-15 05:30 → EDSTATUS 04-15 07:15 → DS 04-15 07:15 → MS 04-15 07:41 → DS 04-15 07:41 → MS 04-15 12:04
PROVIDERS: ADMIT Specialist
PROC: 0SRC0J9 Replacement of Right Knee Joint with Synthetic Substitute, Cemented, Open Approach (ICD-10-PCS; 2020-04-15)
PROC: 3E0T3BZ Introduction of Anesthetic Agent into Peripheral Nerves and Plexi, Percutaneous Approach (ICD-10-PCS; 2020-04-15)
PROC: 0SPC0JZ Removal of Synthetic Substitute from Right Knee Joint, Open Approach (ICD-10-PCS; principal; 2020-04-15 07:15)
DX: M24.661 Ankylosis, right knee (principal); G89.18 Other acute postprocedural pain; R09.02 Hypoxemia; I95.2 Hypotension due to drugs; T41.3X5A Adverse effect of local anesthetics, initial encounter; I10 Essential (primary) hypertension; M10.9 Gout, unspecified; E78.5 Hyperlipidemia, unspecified; Y92.239 Unspecified place in hospital as the place of occurrence of the external cause; Z88.8 Allergy status to other drugs, medicaments and biological substances; Z87.891 Personal history of nicotine dependence; Z79.899 Other long term (current) drug therapy
CPT/HCPCS: 01402; 36415; 51798; 64447; 64450; 73560; 76942; 80048; 80053; 85025; 87070; 87075; 87205; 97110; 97116; 97162; 97165; C1713; C1776; J0461; J0690; J0735; J1100; J1885; J2001; J2250; J2370; J2405; J2704; J2765; J3010; J7121; J8540

== ENCOUNTER 2020-04-09 07:10 | Day surgery (SDC) | payer MEDICARE, OTHER ==
[~2020-04-09] VITALS: Ht 165.1 cm; Wt 80.7 kg
[~2020-04-09 07:10] MED LIST changes: +IRBESARTAN75 MG PO
--- NOTE | 2020-04-09 09:03 | NUR ---
04/09/20 0903 Sheets,Jane 0893 PT ARRIVED TO PACU, PT REACTIVE TO TACTILE STIMULI AND REORIENTED TO PACU, PT FALLS RIGHT BACK TO SLEEP WHILE TALKING TO RN. CALLED . BP DECREASED AND FLUIDS INCREASED WITH PT LAY IN SUPINE. PT ON 3L VIA NC.
--- NOTE | 2020-04-10 06:11 | OR ---
[facility] [address], [place] [address] Signed DATE OF OPERATION: 04/09/2020 SURGEON: Domingo Hillman MD PREOPERATIVE DIAGNOSES: 1. Colonic adenomatous polyps 2005. 2. Right-sided diverticulosis. 3. Internal hemorrhoids. 4. Perianal skin tags. 5. Remote history of perianal condyloma. POSTOPERATIVE DIAGNOSES: 1. Moderate pandiverticulosis. 2. Ycseymb-qo-euwjefdt internal hemorrhoids. 3. Minimal external anal skin tags. 4. Possible perianal condyloma. PROCEDURES: Colonoscopy without biopsy. ESTIMATED BLOOD LOSS: None. INDICATIONS: Bernard is a 69-year-old gentleman, who returns now for a followup colonoscopy. He initially had colonic polyps removed back in 2005, He is known to have diverticula in the right side of his colon. He also has internal hemorrhoids and external anal skin tags. He talked about perianal condyloma in the past. However, we have never seen that for him. His followup colonoscopy in 2013 confirmed his pandiverticulosis along with other hemorrhoids and skin tags. Again, no condyloma. To his knowledge, he was never treated for these condyloma. He has always done well with Versed and fentanyl. He did have a knee replacement since I have seen him last and so we did give some antibiotic today. He reminded me there is no family history of colon cancer or polyps. In the office, I gave son a pamphlet on colonoscopy and he remembers that quite well. He understands there is risk including, but not limited to gas bloating, crampy abdominal pain, bleeding, perforation requiring surgery, and missed diagnosis. He also understands the need for IV conscious sedation, he had expressed understanding and wished to proceed. DESCRIPTION OF PROCEDURE: Electronically Signed By: DOMINGO HILLMAN MD 04/10/20 0611 PATIENT NAME: ELA VELARDE OPERATIVE REPORT DATE OF : 48 REPORT #: [id number] PHYSICIAN: DOMINGO HILLMAN MD PCP: MAZIN TELLO MD REPORT IS CONFIDENTIAL AND NOT TO BE RELEASED WITHOUT AUTHORIZATION [facility] [address], [place] [address] Signed Bernard was taken into our endoscopy suite and placed in the left lateral decubitus position. He was given a total of 4 mg of Versed and 100 mcg of fentanyl to cover the case. A digital rectal exam was performed and we did see several small external anal skin tags and then posteriorly and on the right about 3 cm away from his anal verge, it was a small 3 mm circular skin lesion. It does not appear to be a classic condyloma. Nevertheless, it is probably worthwhile to look at that closer in the office if not biopsied and sent it off for definitive diagnosis. He had good sphincter tone. The prostate is mildly swollen and moderately indurated. The left is certainly more prominent than the right. The adult colonoscope was then introduced and advanced all around into the cecum under direct visualization of camera. He needed just a little extra sedation to advance the scope. His prep was quite good as always. Again, we could see diverticula starting in the cecum and in the right and left sigmoid colons. They were moderate in size, moderate in number, and scattered about. Again, his prep was good. No polyps on this occasion. The rectum was unremarkable. Upon retroflexion of scope, we can easily see his minimal to moderate internal hemorrhoids. He has one internal hemorrhoid column that it is a little more dominant than the others. No obvious irritation or bleeding at this time. After this, the gas was suctioned out and the colonoscope removed. Bernard tolerated the procedure quite well. RECOMMENDATIONS: I will see Bernard back in my office in 7 to 14 days to review his results. He also need to revisit for probable anal exam in the office and biopsy that small lesion on the right posterior side. Domingo Hillman MD [facility]/MOD[facility] /[id number] cc: MD Domingo Leos MD Russell Barr Harrison, MD Electronically Signed By: DOMINGO HILLMAN MD 04/10/20 0611 PATIENT NAME: ELA VELARDE OPERATIVE REPORT DATE OF : 48 REPORT #: [id number] PHYSICIAN: DOMINGO HILLMAN MD PCP: MAZIN TELLO MD REPORT IS CONFIDENTIAL AND NOT TO BE RELEASED WITHOUT AUTHORIZATION [facility] [address] [facility] [place] [address] Signed Copies: ARGENIS KENDRICK MD, ANDREW L MD HARRISON, RUSSELL BARR MD ~ Electronically Signed By: DOMINGO HILLMAN MD 04/10/20 0611 PATIENT NAME: EDGARDO VELARDERIO Merlin OPERATIVE REPORT DATE OF : 48 REPORT #: [id number] PHYSICIAN: DOMINGO HILLMAN MD PCP: MAZIN TELLO MD REPORT IS CONFIDENTIAL AND NOT TO BE RELEASED WITHOUT AUTHORIZATION
== END 2020-04-09 09:54 | disposition home or self-care (01) ==
LOC: OPS 07:10 → DS 07:10 → OPS 08:15 → DS 09:00 → OPS 09:00
PROVIDERS: Colon & Rectal Surgery
PROC: 0DJD8ZZ Inspection of Lower Intestinal Tract, Via Natural or Artificial Opening Endoscopic (ICD-10-PCS; principal; 2020-04-09 08:15)
DX: Z12.11 Encounter for screening for malignant neoplasm of colon (principal); K64.8 Other hemorrhoids; K64.4 Residual hemorrhoidal skin tags; K57.30 Diverticulosis of large intestine without perforation or abscess without bleeding; I10 Essential (primary) hypertension; Z86.010 Personal history of colon polyps; Z87.891 Personal history of nicotine dependence; Z91.030 Bee allergy status; Z88.8 Allergy status to other drugs, medicaments and biological substances
CPT/HCPCS: 99153; G0500; J0690; J2250; J3010; J7121

== ENCOUNTER 2020-04-18 09:35 | Inpatient (IN) | payer MEDICARE, OTHER ==
[~2020-04-18] VITALS: Ht 165.1 cm; Wt 80.7 kg
[~2020-04-18 09:35] MED LIST changes: +HYDROCODON-ACE1 EA10 PO; +TAMSULOSIN HCL0.4 MG PO
--- NOTE | 2020-04-18 09:51 | NUR ---
MED REC COMPLETE
--- NOTE | 2020-04-18 10:51 | NUR ---
Pt up and ambulating in hallway with physical therapy using front wheeled walker.
--- NOTE | 2020-04-18 11:28 | NUR ---
REFILLED PATIENT'S CRYO. PATIENT IS SITTING UP IN HIS CHAIR. PATIENT ALSO DID A PARTIAL BED BATH. CHANGED BED LINENS. HELPED HIM WASH HIS BACK.
--- NOTE | 2020-04-18 11:40 | NUR ---
PT UP IN CHAIR. OT IN ROOM WITH PATIENT.
--- NOTE | 2020-04-18 12:00 | NUR ---
Met with Bernard and discussed Transitional care program. Expectations are for rehab and pt is aware of goals for PT/OT. Discussed need to get up and dressed daily and to be out of bed for meals. Pt states understanding.
--- NOTE | 2020-04-18 14:24 | NUR ---
CONNECTED WITH PT HE WAS AMBULATING IN HOLCOMB WITH Xu SESAY. PT VERY UPBEAT, WORKING HARD. GREETED ME, GAVE ENCOURAGEMENT AND WILL CONTINUE TO CONNECT WITH PT
--- NOTE | 2020-04-18 14:27 | NUR ---
pt up and ambulating in hallway with physical therapy. pt tolerating activity well.
--- NOTE | 2020-04-18 16:06 | NUR ---
PT RESTING IN BED WATCHING TV. CPM IN PLACE. CALL LIGHT WITHIN REACH.
--- NOTE | 2020-04-18 19:22 | NUR ---
pt back to bed from chair. cmp in place. scd's on. pt denies pain. call light within reach.
--- NOTE | 2020-04-18 21:17 | NUR ---
HELPED PT TO THE BATHROOM AND BACK TO BED WITH HIS FWW. VITALS AND I&OS DONE AND CHARTED. CRYO FILLED AND FRESH ICE WATER WELL. BEDSIDE TABLE AND CALL LIGHT IN REACH.
--- NOTE | 2020-04-18 22:25 | NUR ---
PATIENT OFF CPM, WATCHING TV. HAVING NO PAIN. CRYO REFILLED WITH ICE AND NEW ICE WATER GIVEN AND CALL LIGHT IS IN REACH.
--- NOTE | 2020-04-18 23:57 | NUR ---
PATIENT RESTING QUIETLY ON REIGHT SIDE, EYES CLOSED RESPIRATIONS REGULAR AND EVEN. CALL LIGHT IN REACH.
--- NOTE | 2020-04-19 01:57 | NUR ---
PATIENT RESTING QUIETLY ON HIS RIGHT SIDE, EYES CLOSED, RESPIRATIONS REGULAR AND EVEN, CALL LIGHT IN REACH. CRYO CUFF ON AND PNEUMATIC FEET PUMPS ON.
--- NOTE | 2020-04-19 04:03 | NUR ---
PATIENT RESTING QUIETLY ON HIS RIGHT SIDE, RESPIRATIONS REGULAR AND EVEN, EYES CLOSED, CALL LIGHT IN REACH.
--- NOTE | 2020-04-19 04:59 | NUR ---
PATIENT SLEPT WELL MOST OF THE NIGHT, CRYO CUFF REFILLED, PATIENT UP TO THE BATHROOM VOIDING WELL. PATIENT WANTS TO KEEP THE FOOT PUMPS OFF MORE IF POSIBLE AND DO MOR WALKING IN THE HALLS TODAY. I SAID I WOULD PASS THIS ON TO THE DAY SHIFT NURSE. ALL IN ALL PATIENT HAD A GOOD NIGHT.
--- NOTE | 2020-04-19 06:39 | NUR ---
PUT ON HIS SCD'S AND CRYO CUFF BACK ON. BEDSIDE TABLE AND CALL LIGHT IN REACH. PT NEEDS NOTHING MORE AT THIS TIME.
--- NOTE | 2020-04-19 07:30 | NUR ---
ASSUMED CARE OF PATIENT, HE IS SITTING UP IN BED READY FOR BREAKFAST, CPM ON, DENIES PAIN, STATES HE SLEPT WELL. DENIES ANY NEEDS AT THIS TIME.
--- NOTE | 2020-04-19 08:03 | NUR ---
WOKE PATIENT FOR BREAKFAST. GAVE WASHCLOTH FOR FACE AND HANDS. CHECKED CRYO CUFF. CALL LIGHT IN REACH NO OTHER NEEDS.
--- NOTE | 2020-04-19 09:46 | NUR ---
PATIENT UP IN ROOM WITH PT. PATIENT NOW HAS PERMISSION BY PT TO BE UP IN ROOM WITH FWW. VITALS AND I&OS DONE AND CHARTED. CRYO CUFF REFILLED. CALL LIGHT IN REACH
--- NOTE | 2020-04-19 11:28 | NUR ---
PT ALERT, ORIENTED AND SITIN UP IN CHAIR WATCHING TV. PT IS VERY POSITIVE, EVEN THROUGH TREMENDOUS DIFFICULTY. PT MENTIONED HIS IS IN HOSP NOW AND FEELS BAD THAT THEY ARE NOT TOGETHER. REQUESTED I CONTACT HIS CHIEF ESTIMATOR, LEFT . HAD PRAYER WITH PT AND LEFT JASON
--- NOTE | 2020-04-19 11:30 | NUR ---
Pt sitting up in chair. Has worked with PT this morning and is doing well. Pt has multiple questions about TC. Questions answered about goals and length of stay. Pt is wanting to know, if is can rehab in our program when she discharges from [facility]. Informed [facility] would need to send a referral and it would have to be approved by Dr. Mejia, Dr. Dawkins, and Liana Saleh dept aerospace manager. He would like to be here. Let him know it all depends on approval and bed availability, but we would love to have her. He also wants to know if visitor can bring him more clothes. Let him know restrictions have lifted and pt's may have 1 visitor.
--- NOTE | 2020-04-19 14:48 | NUR ---
PATIENT RESTING IN BED, TRANSITIONAL CARE I&OS DONE AND CHARTED. CPM AND CRYO CUFF PUT BACK ON. CRYO CUFF REFILLED. RN IN TO REMOVE IV. CALL LIGHT IN REACH, NO OTHER NEEDS AT THIS TIME.
--- NOTE | 2020-04-19 18:38 | NUR ---
PT HAS BEEN AMBULATING IN HALLS USING FWW, CONT. USING CPM ON 2HRS AND OFF 2HRS TODAY, TOLERATED THERAPY WELL, MOTIVATED AND IN GOOD SPIRITS.
--- NOTE | 2020-04-19 19:10 | NUR ---
RECEIVED REPORT FROM BAO HARRIS. pt RESTING IN BED. FOOT PUMPS, AND CRYOCUFF ON. NO REQUESTS AT THIS TIME. WHITEBOARD UPDATED. CALL LIGHT WITHIN REACH.
--- NOTE | 2020-04-19 21:25 | NUR ---
CALL LIGHT ON. pt FINISHED WITH CPM. ASSESSMENT DONE. YARI DRESSING CDI, GREEN LIGHT FLASHING. ON-Q PUMP IN PLACE. AES ON. MEDICATIONS GIVEN (SEE MAR). pt REFUSED BOWEL MED, EDUCATION DONE. PROVIDED FRESH WATER. CRYOCUFF HAS SUFFICIENT ICE. NO FURTHER REQUESTS AT THIS TIME. CALL LIGHT WITHIN REACH.
--- NOTE | 2020-04-20 00:21 | NUR ---
ROUNDED ON pt. RESTING WITH EYES CLOSED, RESPIRATIONS REGULAR AND UNLABORED. CALL LIGHT WITHIN REACH.
--- NOTE | 2020-04-20 02:20 | NUR ---
ROUNDED ON pt. RESTING WITHE EYES CLOSED, RESPIRATIONS REGULAR AND UNLABORED. CALL LIGHT WITHIN REACH.
--- NOTE | 2020-04-20 04:39 | NUR ---
CALL LIGHT ON. pt UP TO AMBULATE IN HOLCOMB SBA WITH THIS RN. WALKED FROM ROOM TO FRONT DOORS AND BACK WITHOUT ISSUE, CARRIED WALKER. CPM SETUP, CRYOCUFF REFRESHED. pt SITUATED. NO FURTHER REQUESTS AT THIS TIME. CALL LIGHT WITHIN REACH.
--- NOTE | 2020-04-20 05:17 | NUR ---
pt USING CPM. SCHEDULED PAIN MED GIVEN (SEE MAR). DENIES PAIN AT THIS TIME. CALL LIGHT WITHIN REACH.
--- NOTE | 2020-04-20 05:19 | NUR ---
pt RESTED MOST OF SHIFT. PAIN CONTROLLED WITH SCHEDULED MEDICATIONS. AMBULATED IN HOLCOMB SBA, RARELY USED WALKER. INDEPENDENT IN ROOM. CPM, CRYOCUFF, FOOT PUMPS EVERY OTHER 2 HOURS. TOLERATING 2GM SODIUM DIET. USES CALL LIGHT APPROPRIATELY.
--- NOTE | 2020-04-20 07:41 | NUR ---
Pt sitting up in bed, a&ox4. Pt reports tolerable pain in right knee. CPM machine off at this time. Pt on ra, respirations are even and unlabored. Pt has no needs at this time. Personal supplies and call light within reach.
--- NOTE | 2020-04-20 07:45 | NUR ---
PATIENT RESTING IN BED. WHITE BOARD UPDATED. EMPTIED URINAL. CALL LIGHT WITHIN REACH. NO OTHER NEEDS AT THIS TIME
--- NOTE | 2020-04-20 10:05 | NUR ---
PATIENT SITTING UP IN CHAIR. VITAL SIGNS AND I&O DONE. CALL LIGHT WITHIN REACH. NO OTHER NEEDS AT THIS TIME.
--- NOTE | 2020-04-20 10:36 | NUR ---
Pt sitting up in chair eating breakfast. Pt reports tolerable right knee pain. Catalina dressing CDI. CMS intact to right leg. Polar ice in place to right knee. Pt has no needs at this time. Personal supplies and call light within reach.
--- NOTE | 2020-04-20 10:41 | NUR ---
PATIENT SITTING UP IN CHAIR. PATIENT REFUSED TO TAKE A SHOWER TODAY. PATIENT DID ORAL CARE AND SHAVING. CALL LIGHT WITHIN REACH. NO OTHER NEEDS AT THIS TIME
--- NOTE | 2020-04-20 12:56 | NUR ---
Pt resting in bed, eyes closed, respirations even and non labored. Pt has no distress noted. CPM and polar ice machine intact, running appropriately. Pt has no needs at this time. Personal supplies and call light within reach.
--- NOTE | 2020-04-20 13:52 | NUR ---
PATIENT RESTING IN BED. I&O DONE. CALL LIGHT WITHIN REACH. NO OTHER NEEDS AT THIS TIME
--- NOTE | 2020-04-20 17:24 | NUR ---
PATIENT SITTING UP IN CHAIR. I&O DONE. ICE WATER GIVEN. CALL LIGHT WITHIN REACH. NO OTHER NEEDS AT THIS TIME
--- NOTE | 2020-04-20 17:39 | NUR ---
SBA with walker in Hallway/BR. Tolerating reg diet. CPM/cyro/foot pumps every other 2 hrs. tolerating 2G sodium diet. Catalina dressing with on q pump set on 2. Pt calls appropriately.
--- NOTE | 2020-04-20 19:05 | NUR ---
SHIFT REPORT RECIEVED FROM JAMAR GORE. PT RESTING IN BED, WATCHING TV. FOOT PUMPS ON, YARI GREEN. NO NEEDS AT THIS TIME. CALL LIGHT IN REACH.
--- NOTE | 2020-04-20 20:53 | NUR ---
ASSESSMENT, VS AND I&O COMPLETED. GENERALIZED EDEMA IN RIGHT LOWER THIGH TO UPPER LEG. CMS INTACT. YARI GREEN, CRYOCUFF ON. SCDs OFF TO WALK IN ROOM. SMALL AMOUNT OF DRIED BLOOD ON YARI, NO EDEMA NOTED IN FEET.DARK BLOOD NOTED UNDER DRESSING ABOVE KNEE, MONITOR. LUNGS CLEAR. PT DENIES PAIN. NO OTHER NEEDS AT THIS TIME. CALL LIGHT IN REACH.
--- NOTE | 2020-04-20 21:36 | NUR ---
FILLED CRYOCUFF WITH FRESH ICE.
--- NOTE | 2020-04-20 21:53 | NUR ---
AMBULATED WITH pt, SBA, IN HOLCOMB, MULTIPLE LAPS. pt SETTLED IN BED. NO REQUESTS AT THIS TIME. CALL LIGHT WITHIN REACH.
--- NOTE | 2020-04-20 21:59 | NUR ---
SCHEDULED MED PROVIDED. PT DENIES PAIN. NO OTHER NEEDS AT THIS TIME. CALL LIGHT IN REACH.
--- NOTE | 2020-04-21 00:46 | NUR ---
PT RESTING IN BED, EYES CLOSED. RR EVEN, UNLABORED. CALL LIGHT IN REACH.
--- NOTE | 2020-04-21 03:00 | NUR ---
PT RESTING IN BED, EYES CLOSED. RR EVEN, UNLABORED. CALL LIGHT IN REACH.
--- NOTE | 2020-04-21 06:01 | NUR ---
FILLED CRYOCUFF WITH FRESH ICE. FRESH ICE WATER ALSO GIVEN. I&OS DONE AND CHARTED. GARBAGES EMPTIED. PT NEEDS NOTHING MORE AT THIS TIME. BEDSIDE TABLE AND CALL LIGHT IN REACH.
--- NOTE | 2020-04-21 06:01 | NUR ---
PT SLEPT MOST THE NIGHT.WALKING HALLS USING CANE X2, SBA. PAIN MANAGAED WITH SCHEDULED MEDS. YARI GREEN WITH DRIED AREAS OF BLOOD ON DRESSING. PT TOLERATED MEDS AND DIET WELL. PT DECLINED STOOL SOFTNER HE REPORTS VERY SOFT STOOLS. VSS, UOS. GENERALIZED EDEMA IN RIGHT KNEE UNCHANGED.
--- NOTE | 2020-04-21 06:06 | NUR ---
CALL LIGHT ON. pt AMBULATED IN HOLCOMB SBA WITH CANE. WALKED MULTIPLE LAPS. BACK IN BED. SCHEDULED MEDICAITON GIVEN (SEE MAR). CALL LIGHT WITHIN REACH.
--- NOTE | 2020-04-21 10:13 | NUR ---
PATIENT UP IN ROOM WITH CANE. VITALS AND I&OS DONE AND CHARTED. PATIENTS BANDAGE ON RT THIGH IS LEAKING A LITTLE, PJ PANTS ARE WET, AREA LOOKS FINE. THIS CORROSION CONTROL TECHNICIAN HAD CARLY VELOZ NOTIFY BAO VELARDE. CALL LIGHT IN REACH
--- NOTE | 2020-04-21 11:41 | NUR ---
LOOKED AT PT DRESSING IT IS LEAKING RED IN COLOR DRAINAGE FROM THE TOMP OF THE DRESSING. IT APPEARS TO BE COMMING FROM THE SSTRIP AREA. PT DENIES PAIN REPORT GIVEN TO BIANCA
--- NOTE | 2020-04-21 11:46 | NUR ---
CHAIRSIDE REPORT RECEIVED PT SITTING UPRIGHT DENIES PAIN OR NEEDS OF. PT UP TO WALK THE HALLS
--- NOTE | 2020-04-21 13:41 | NUR ---
PATIENT UP IN CHAIR, VISITOR IN ROOM. I&OS ARE DONE AND CHARTED. CALL LIGHT IN REACH. NO OTHER NEEDS AT THIS TIME
--- NOTE | 2020-04-21 14:45 | NUR ---
PT HAD VISITOR EARLIER REMAINS UP OUT OF BED THIS SHIFT. AMBULATES THE HOLCOMB RETURNS TO THE CHAIR. DENIES PAIN OR DISCOMFORTS.
--- NOTE | 2020-04-21 17:26 | NUR ---
PATIENT IN BED EYES CLOSED. CRYO CUFF AND DRINKING CUP REFILLED. I&OS DONE AND CHARTED.
--- NOTE | 2020-04-21 17:41 | NUR ---
PT CONTINUES UPBEAT AND TALKATIVE. UP INDEPENDANTLY IN ROOM NO C/O PAIN OR DISCOMFORT
--- NOTE | 2020-04-21 19:43 | NUR ---
BEDSIDE REPORT RECEIVED FROM BAO BAIRD. pt UP AMBULATING HALLWAY SBA WITH CANE, GAIT STEADY. pt DENIES ANY NEEDS AT THIS TIME.
--- NOTE | 2020-04-21 21:50 | NUR ---
pt RESTING IN BED. ASSESSMENT COMPLETE. VSS. CRYO CUFF REFILLED AND IN PLACE. DRESSING CDI, YARI FLASHING GREEN LIGHT. ON Q PUMP TO 2 ML/HR, DRIED SANGUINOUS DRAINAGE AT ON Q SITE. pt DENIES PAIN. SCHEDULED MEDICATIONS ADMINISTERED. ICE CREAM, ICE WATER PROVIDED. NO ADDITIONAL REQUESTS. CALL LIGHT IN REACH.
--- NOTE | 2020-04-22 00:47 | NUR ---
pt RESTING IN BED WITH EYES CLOSED. BREATHING UNLABORED, APPEARS TO BE SLEEPING.
--- NOTE | 2020-04-22 01:06 | NUR ---
pt UP AMBULATING IN HALLWAY INDEPENDENTLY WITH CANE, TOLERATING WELL.
--- NOTE | 2020-04-22 03:04 | NUR ---
CHECKED ON pt, RESTING IN BED WITH EYES CLOSED, BREATHING UNLABORED. CRYO CUFF ON RIGHT KNEE.
--- NOTE | 2020-04-22 06:11 | NUR ---
pt AWAKE, USING CSM MACHINE. DENIES PAIN. CRYO CUFF REFILLED, ICE WATER PROVIDED. URINE HAT EMPTIED. CALL LIGHT IN REACH. NO ADDITIONAL REQUESTS.
--- NOTE | 2020-04-22 06:26 | NUR ---
pt RESTED WELL. YARI DRESSING CDI, DRAINAGE UNCHANGED. ON Q PUMP TO 2 ML/HR. NO IV ACCESS. AMBULATING IN HALLWAY INDEPENDENTLY WITH CANE THIS SHIFT, GAIT STEADY. VSS. QS URINE OUTPUT. DENIES PAIN THROUGHOUT SHIFT. CRYO CUFF IN PLACE. CPM MACHINE Q2H [place].
--- NOTE | 2020-04-22 07:36 | NUR ---
Pt sitting up in bed, a&ox4. Pt is on ra, resp even and non labored. Pt reports no pain to right leg. Ice/cpm and foot pumpers off at this time. Pt declines needs. Personal supplies and call light within reach.
--- NOTE | 2020-04-22 09:35 | NUR ---
Pt working with PT at this time. Will give am medications when pt back to room.
--- NOTE | 2020-04-22 10:30 | NUR ---
Pt out walking with his cane and ambulated to my office. Wanting to go home today and informed he will need to discuss with Dr. Mejia. Pt's grandson would pick him up and spend the night with him. He thinks his will be discharged tomorrow from [facility] and their daughter will come and stay with them. Bernard is aware he is not able to take on the care of his at this time. He states he feels safe as friends and family will provide food, grocery shop, and assist him as needed.
--- NOTE | 2020-04-22 13:04 | NUR ---
PT ALERT, ORIENTED AND LAYING IN BED WITH CPM IN USE. PT VERY POSITIVE AND UPBEAT. HOPES TO DC TODAY, WAITING ON DR KENDRICK. PT HAS A STRONG MARIA T, IS VERY ENCOURAGING AND HOPEFUL.PT REQUESTED PRAYER,NOT ONLY FOR HIMSELF, BUT FOR HIS WELL.
--- NOTE | 2020-04-22 13:10 | NUR ---
PATIENT RESTING IN BED. I&O DONE. CALL LIGHT WITHIN REACH. NO OTHER NEEDS AT THIS TIME
--- NOTE | 2020-04-22 13:17 | NUR ---
Pt resting in bed, hob elevated. Cpm and polar ice intact to right leg. Green light flashing on eleanor dressing, on q set @l. Pt reports pain is well controlled and is looking forward to going home today or tmrw. Snack provided to pt. No needs at this time. Personal supplies and call light within reach.
[2020-04-22] MEDS ORDERED: ASPIRIN EC325 MG PO (16:06)
[2020-04-22] MEDS ORDERED: CELECOXIB200 MG PO (16:06)
[2020-04-22] MEDS ORDERED: GABAPENTIN300 MG PO (16:07)
[2020-04-22] MEDS ORDERED: POLYETHYLENE GL17 GM PO (16:07)
[2020-04-22] MEDS ORDERED: OXYCODONE HCL5 MG PO (16:07)
--- NOTE | 2020-04-22 16:29 | NUR ---
PATIENT SITTING UP IN BED. THE FINAL VITAL SIGNS WERE OBTAINED PRIOR TO DISCHARGE FROM THE UNIT
--- NOTE | 2020-04-23 07:58 | DS ---
[facility] [address] [place], [place] [address] Signed ADMISSION DATE: 04/18/2020 DISCHARGE DATE: 04/22/2020 ADMISSION DIAGNOSIS: Postop revision knee replacement, right. DISCHARGE DIAGNOSIS: Postop revision knee replacement, right. PROCEDURES PERFORMED: None. 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 He had severe constriction and was unresponsive to nonoperative treatment. Risks and benefits of operative treatment were discussed with him. He elected to proceed. He underwent the procedure, did well. However, he had nobody at home to take care, as his had recently undergone an amputation. He is stable for discharge to continued inpatient rehab. He did well on swing bed. Continued to work diligently with physical therapy. He was placed on a CPM 0-90 and has kept his range of motion 0 to about 95 degrees. He was able to walk up and down stairs, up and down the [place] with a single-point cane by the day of discharge. He will be discharged to home with outpatient physical therapy. Follow up with me next . Argenis Mejia MD BA/HOLLEY /[id number] Copies: ~ Electronically Signed By: ARGENIS MEJIA MD 04/23/20 0758 PATIENT NAME: ELA VELARDE DISCHARGE SUMMARY DATE OF : 48 REPORT #: [id number] PHYSICIAN: ARGENIS MEJIA MD PCP: MAZIN TELLO MD REPORT IS CONFIDENTIAL AND NOT TO BE RELEASED WITHOUT AUTHORIZATION
== END 2020-04-22 17:05 | disposition home or self-care (01) | DRG 561 ==
LOC: MS 09:35
PROVIDERS: ADMIT Specialist
DX: Z47.1 Aftercare following joint replacement surgery (principal); Z96.651 Presence of right artificial knee joint; Z88.8 Allergy status to other drugs, medicaments and biological substances
CPT/HCPCS: 97110; 97116; 97161; 97165; 97535

== ENCOUNTER 2020-08-11 08:07 | Emergency (ER) | payer MEDICARE ==
[~2020-08-11] VITALS: Ht 165.1 cm; Wt 74.8 kg
--- OUTSIDE RECORDS SUMMARY | ~2020-08-11 | XMS | Clinical Summary ---
Demographics + + + | Address | [address] | | | [place] [address] | + + + | Home Phone | | + + + | Preferred Language | Unknown | + + + | Marital Status | Unknown | + + + | Congregational Affiliation | 1041 | + + + | Race | Unknown | + + + | Ethnic Group | Unknown | + + + Author + + + | Author | [facility] | | | and [place] | + + + | Organization | [facility] | | | and [...] Team Providers + +------+ + | Care Compensation Consulting Manager Name | Role | Phone | + +------+ + | Chirag Atwood MD | PCP | | + +------+ + Allergies + + + +--------+ + | Active Allergy | Reactions | Severity | Noted | Comments | | | | | Date | | + + + +--------+ + | Bee Venom | | | | | + + + +--------+ + Medications + + + +---------+------+------+-------+ | Medication | Sig | Dispensed | Refills | Star | End | Statu | | | | | | t | Date | s | | | | | | Date | | | + + + +---------+------+------+-------+ | pravastatin | Take 80 mg by mouth | | 0 | 09/1 | | Activ | | (PRAVACHOL) 80 MG | nightly. | | | 4/20 | | e | | tablet | | | | 12 | | | + + + +---------+------+------+-------+ | Glucosamine | Take 500 mg by mouth | | 0 | 09/1 | | Activ | | Sulfate 500 MG TABS | 2 times daily. | | | 4/20 | | e | | | | | | 12 | | | + + + +---------+------+------+-------+ | candesartan | Take 32 mg by mouth | | 0 | 09/1 | | Activ | | (ATACAND) 32 MG | Daily. | | | 4/20 | | e | | tablet | | | | 12 | | | + + + +---------+------+------+-------+ | acetaminophen | Take 2 tabs by mouth | | 0 | 09/1 | | Activ | | (TYLENOL) 325 mg | as needed | | | 4/20 | | e | | tablet | | | | 12 | | | + + + +---------+------+------+-------+ | ezetimibe (ZETIA) | Take 10 mg by mouth | | 0 | 09/1 | | Activ | | 10 mg tablet | Daily. | | | 4/20 | | e | | | | | | 12 | | | + + + +---------+------+------+-------+ | EPINEPHrine | Inject 1mL as needed | | 0 | 09/1 | | Activ | | (EPIPEN) 0.3 mg/0.3 | | | | 4/20 | | e | | mL JUAN C | | | | 12 | | | + + + +---------+------+------+-------+ | celecoxib | Take 200 mg by mouth | | 0 | 09/1 | | Activ | | (CELEBREX) 200 mg | as needed. | | | 4/20 | | e | | capsule | | | | 12 | | | + + + +---------+------+------+-------+ | omeprazole (KLS | Take 20 mg by mouth | | 0 | 09/1 | | Activ | | OMPERAZOLE) 20 mg | as needed. | | | 4/20 | | e | | TBEC | | | | 12 | | | + + + +---------+------+------+-------+ Active Problems + + + | Problem | Noted Date | + + + | DIVERTICULOSIS OF COLON | | + + + | PURE HYPERCHOLESTEROLEMIA | | + + + | HYPERTENSION, BENIGN ESSENTIAL | | + + + | DIARRHEA | | + + + | ORGANIC IMPOTENCE | | + + + | OSTEOARTHRITIS, GENERALIZED, MULTIPLE JOINTS | | + + + | ABDOMINAL PAIN, GENERALIZED | | + + + Social History + +-------+ [...] on file | | + + + Last Filed Vital Signs + + + + + | Vital Sign | Reading | Time Taken | Comments | + + + + + | Blood Pressure | 100/66 | 11/13/2010 12:00 AM | | | | | PST | | + + + + + | Pulse | - | - | | + + + + + | Temperature | - | - | | + + + + + | Respiratory Rate | - | - | | + + + + + | Oxygen Saturation | - | - | | + + + + + | Inhaled Oxygen | - | - | | | Concentration | | | | + + + + + | Weight | 74.8 kg (165 lb) | 11/13/2010 12:00 AM | | | | | PST | | + + + + + | Height | 165.1 cm (5' 5") | 11/13/2010 12:00 AM | | | | | PST | | + + + + + | Body Mass Index | 27.46 | 11/13/2010 12:00 AM | | | | | PST | | + + + + + Plan of Treatment + + +-------+ + | Health Maintenance | Due Date | Last | Comments | | | | Done | | + + +-------+ + | Vaccine: | | | | | Dtap/Tdap/Td (1 - | 8 | | | | Tdap) | | | | + + +-------+ + | Vaccine: Zoster (1 | | | | | of 2) | 9 | | | + + +-------+ + | Vaccine: | | | | | Pneumococcal 65+ (1 | 4 | | | | of 1 - PPSV23) | | | | + + +-------+ + | Vaccine: Influenza | | | | | (#1) | 0 | | | + + +-------+ + Results Not on filefrom Last 3 Months
--- OUTSIDE RECORDS SUMMARY | ~2020-08-11 | XMS | Encounter Summary ---
Demographics + + + | Address | [address] | | | [place] [address] | + + + | Home Phone | | + + + | Preferred Language | Unknown | + + + | Marital Status | Unknown | + + + | Gnosticism Affiliation | 1041 | + + + | Race | Unknown | + + + | Ethnic Group | Unknown | + + + Author + + + | Author | [facility] | | | and [place] | + + + | Organization | [facility] | | | and [...] Team Providers + +------+ + | Care Display Artist Name | Role | Phone | + +------+ + PCP | Unavailable | + +------+ + Encounter Details +--------+ + + + + | Date | Type | Department | Care Team | Description | +--------+ + + + + | 11/21/ | [facility] | [facility] | | | | 2010 | Encounter | MED [facility] GENER[facility] OP | | | | | | CONV DEPT [address] | | | | | [place], | | | | | | [place] [address] | | | | | | [phone] | | | +--------+ + + + [...] on file | | + + + documented as of this encounter Plan of Treatment Not on filedocumented as of this encounter Visit Diagnoses Not on filedocumented in this encounter"
--- OUTSIDE RECORDS SUMMARY | ~2020-08-11 | XMS | Encounter Summary ---
Demographics + + + | Address | [address] | | | [place] [address] | + + + | Home Phone | | + + + | Preferred Language | Unknown | + + + | Marital Status | Unknown | + + + | Denominational Affiliation | 1041 | + + + | Race | Unknown | + + + | Ethnic Group | Unknown | + + + Author + + + | Author | [facility] | | | and [place] | + + + | Organization | [facility] | | | [...] Team Providers + +------+ + | Care Network Services Project Manager Name | Role | Phone | [...] | [address], [place] | [place] [address] | | | | | [address] | [phone] | | | | | [phone] | | | +--------+ + + + [...]
--- OUTSIDE RECORDS SUMMARY | ~2020-08-11 | XMS | Encounter Summary ---
Demographics + + + | Address | [address] | | | [place] [address] | + + + | Home Phone | | + + + | Preferred Language | Unknown | + + + | Marital Status | Unknown | + + + | Faith Affiliation | 1041 | + + + | Race | Unknown | + + + | Ethnic Group | Unknown | + + + Author + + + | Author | [facility] | | | and [place] | + + + | Organization | [facility] | | [...] Team Providers + +------+ + | Care Marine Erector Name | Role | Phone | + [...] | | | | | [address] | | | | | | [place], [place] | | | | | | [address] | | | | | | [phone] | | | +--------+ + + + [...]
[~2020-08-11 08:07] MED LIST changes: +ASPIRIN EC325 MG PO; +CELECOXIB200 MG PO; +GABAPENTIN300 MG PO; +POLYETHYLENE GL17 GM PO
[2020-08-11] MEDS ORDERED: SULFAMETHOXAZO1 EAC1 PO (08:25)
== END 2020-08-11 09:49 | disposition home or self-care (01) ==
LOC: ED 08:07
DX: R04.0 Epistaxis (principal); I10 Essential (primary) hypertension; Z87.891 Personal history of nicotine dependence; Z88.8 Allergy status to other drugs, medicaments and biological substances; Z79.899 Other long term (current) drug therapy
CPT/HCPCS: 30901; 99283-25